=== PATIENT | female | born 1940 | race Caucasian/White ===

== ENCOUNTER → 2017-10-23 | Outpatient (CLI) | payer BC, MEDICARE ==
[~2017-10-23] MED LIST: ALIGN10.5 MG PO; ALLEGRA-D 24 H1 EACH PO; BUTALB-APAP-CA1 EACH PO; CELEBREX 200 M200 M1 PO; DICLOFENAC SOD50 MG PO; FLAXSEED1000 MG PO; HYDROCODON-ACE1 EAC7 PO; IBUPROFEN 600600 M1 PO; LISINOPRIL10 MG PO; MOBIC15 MG PO; MULTIVITAMINS1 EAC7 PO; NORVASC5 MG PO; OMEPRAZOLE20 M2 PO; PREMARIN VAGINAL CRE TOP; PROLIA60 MG/1 ML SQ; SYNTHROID75 MCG PO; TOPROL XL25 MG PO; TUMS E.S.750 MG PO; ULTRAM 50MG TAB50 MG PO; XANAX 0.25 MG0.25 MG PO; ZYRTEC-D TABLE1 EAC1 PO; ZYRTEC10 M2 PO; magnesium PO; move free
--- NOTE | 2017-10-28 08:35 | PAINCON ---
[address] [address] PAIN MANAGEMENT CONSULTATION Name: CHICHI MAN Room: [facility].#: [id number] Admission: 10/23/17 Attend Phys: Rosemarie Rivera Discharge: Date of : 38 Report #: [id number] THIS REPORT FOR: //name// CC: Moni Parrish DATE OF SERVICE: 10/23/2017 HISTORY OF PRESENT ILLNESS: The patient is a 77-year-old female, prior seen by Dr. Avery Parrish and actually last visit was about a year ago in 12/2016, had a successful spinal cord stimulator trial that culminated in implantion. Returns to pain clinic today noting the spinal cord stimulator does help her lumbar radicular pain, but she has developed new low back pain at the apex of her fairly significant thoracolumbar scoliosis. Pain is in the right low back area. Tender over the L3-L4, L4-L5 and L5-S1 facets. Pain exacerbates with standing, rotating and bending. She rates her subjective pain score 5 on a VAS. Uses meloxicam 15 mg 1 a day and tramadol p.r.n. PHYSICAL EXAMINATION: GENERAL: Shows pleasant 4 feet 11 inches, 100 pounds female, BMI is within normal limits. VITAL SIGNS: Blood pressure is 141/74, pulse 87, respirations 16. MUSCULOSKELETAL: She does not use tobacco products. Rises from chair using armrest. Again, significant thoracolumbar scoliosis with apex of the curve to the right. This is a rotoscoliosis component as well. Well-healed scar over the right side IPG pocket. Pain is exacerbated with sidebending and rotation. Lumbar flexion is limited as well. ASSESSMENT: Symptomatic lumbar spondylosis, component of lumbosacral spondylosis in a patient with significant thoracolumbar scoliosis. RECOMMENDATIONS: Discussion with the patient today about therapeutic option, would like to move forward with right L3-L4, L4-L5 and L5-S1 facet joint injection under fluoroscopy today, follow up in 3-4 weeks for reevaluation. If she gets transient relief, we will consider medial branch dorsal rami diagnostic blocks at L2, L3, L4 and L5 and consideration of RFL of same. PROCEDURE NOTE: 3-level lumbar facet joint injection under fluoroscopy. INDICATION: Lumbar and lumbosacral spondylosis without myelopathy. DESCRIPTION OF PROCEDURE: After written and informed consent was obtained, the patient was taken to fluoroscopy suite, placed in prone position. After sterile prep and drape, skin wheal was raised. A 22-gauge stylet needle was placed to contact the inferior aspect of the right L3-L4, L4-L5 and L5-S1 facet joint. AP and lateral projections showed good needle [phone] [id number] PAIN MANAGEMENT CONSULTATION Name: CHICHI MAN Room: [facility] Omkar#: [id number] Admission: 10/23/17 Attend Phys: Rosemarie Rivera Discharge: Date of : 38 Report #: [id number] Omnipaque was injected showing spread within the joints. Each joint was then injected with 20 mg triamcinolone plus 1 mL of 0.5% preservative-free bupivacaine. All 3 needles were removed. The area was cleansed. Band-Aids applied. The patient was monitored for an appropriate period of time, discharged in good and stable condition. Fluoroscopy time was under 30 seconds. <ELECTRONICALLY SIGNED> By: César Parrish DO 10/28/17 [id number] Parrish DO /nt
== END | disposition home or self-care (01) ==
LOC: M.PC 02:59
DX: M47.816 Spondylosis without myelopathy or radiculopathy, lumbar region (principal); M47.817 Spondylosis without myelopathy or radiculopathy, lumbosacral region; M41.85 Other forms of scoliosis, thoracolumbar region; I10 Essential (primary) hypertension; Z98.890 Other specified postprocedural states; Z79.899 Other long term (current) drug therapy